=== PATIENT | female | born 1935 | race Two or more races ===

== ENCOUNTER 2023-04-25 12:18 | Inpatient (IN) | payer MEDICARE, MEDICAID ==
[~2023-04-25] VITALS: Ht 165.1 cm; Wt 54.4 kg
[2023-04-25 13:16] LABS: HEMATOCRIT. 32.5 % (36.0-48.0); HEMOGLOBIN. 10.3 g/dL (12.0-16.0); MEAN CORPUSCULAR HGB CONC 31.8 g/dL (31.0-37.0); MEAN CORPUSCULAR VOLUME 91.4 fL (81.0-99.0); PLATELET 211 x1000/uL (130-400); RED BLOOD CELL COUNT 3.56 mill/uL (4.2-5.4); RED CELL DISTRIBUTION WIDTH 15.4 % (11.6-14.6)
[2023-04-25 13:27] LABS: PROTHROMBIN TIME 10.9 sec (9.6-11.0)
[2023-04-25 13:37] LABS: DIFFERENTIAL COMMENT 1
[2023-04-25 13:48] LABS: ALANINE AMINOTRANSFERASE 33 IU/L (10-49); ALBUMIN 4.1 g/dL (3.2-4.8); ASPARTATE AMINOTRANSFERASE 52 IU/L (<34); BILIRUBIN TOTAL 0.6 mg/dL (0.1-1.0); CALCIUM 9.3 mg/dL (8.7-10.4); CARBON DIOXIDE 27 mEq/L (21-32); CHLORIDE 105 mEq/L (98-107); CREATININE 1.3 mg/dL (0.6-1.0); PROTEIN TOTAL 6.9 g/dL (6.0-8.3); SODIUM 138 mEq/L (136-145); UREA NITROGEN BLOOD 25 mg/dL (9-23)
[2023-04-25 13:51] LABS: PLATELET ESTIMATE NORMAL
[2023-04-25 14:09] LABS: GLUCOSE 43 mg/dL (70-105)
[2023-04-25] MEDS: CEFTRIAXONE 1GM PREMIX 50 ML IV NR (14:40)
[2023-04-25] MEDS: DEXTROSE 50% WATER 50ML SYRINGE IV NR (14:42)
[2023-04-25] MEDS: DEXT 10% WATER 1,000 ML IV SCH (15:08)
[2023-04-25] MEDS ORDERED: IPRATROPIUM/ALBUTEROL 0.5-3(2.5)MG/3ML NEB HHN PRN (15:30)
[2023-04-25] MEDS ORDERED: DOCUSATE SODIUM 100MG CAPSULE PO PRN (15:30)
[2023-04-25] MEDS ORDERED: GUAIFENESIN 200MG/10ML SUGAR FREE UDC PO PRN (15:30)
[2023-04-25] MEDS ORDERED: ATOR20TA65 PO (15:40)
[2023-04-25] MEDS ORDERED: DAPA5TAB PO (15:40)
[2023-04-25] MEDS ORDERED: HYDR-4135 PO (15:40)
[2023-04-25] MEDS ORDERED: BENA-8 PO (15:40)
[2023-04-25] MEDS ORDERED: ASPI-1406 PO (15:40)
[2023-04-25] MEDS ORDERED: HYDRALAZINE HCL 50MG TABLET PO SCH (17:00)
[2023-04-25] MEDS: BLOOD SUGAR DIAGNOSTIC STRIP TEST SCH ×2 (17:32→20:00)
[2023-04-25] MEDS ORDERED: CLONIDINE 0.1MG TABLET PO PRN (17:45)
[2023-04-25] MEDS: LISINOPRIL 20MG TABLET PO SCH (18:01)
[2023-04-25] MEDS ORDERED: ACETAMINOPHEN 325MG TABLET PO PRN (18:15)
[2023-04-25] MEDS: SODIUM CHLORIDE 0.45% 1,000 ML IV ONE (18:52)
[2023-04-25 20:00] VITALS: BP 131/67; PULSE 103; RESP 17; TEMP 101.3
[2023-04-25] MEDS: ATORVASTATIN CALCIUM 20MG TABLET PO SCH (20:02)
[2023-04-25 20:32] VITALS: BP 107/65; PULSE 101; RESP 18; TEMP 98.8
[2023-04-25] MEDS: INSULIN LISPRO 100 UNITS/ML SUBCUT SCH (21:00)
[2023-04-25] MEDS: DEXTROSE 50% WATER 50ML SYRINGE IV PRN (22:17)
[2023-04-26] VITALS: BP 104/53; PULSE 103; RESP 18; TEMP 100.9
[2023-04-26] MEDS ORDERED: DEXT 5%/0.45% NACL 500ML 500 ML IV NR (01:00)
[2023-04-26] MEDS: DEXT 5%/0.9% NACL 500 ML IV SCH (02:00)
[2023-04-26 04:00] VITALS: BP 134/62; PULSE 101; PULSE 102; RESP 18; TEMP 99.5
[2023-04-26 05:43] LABS: BASOPHILS % 0.7 % (0.0-2.0); EOSINOPHILS % 3.7 % (0.0-5.0); HEMATOCRIT. 30.3 % (36.0-48.0); HEMOGLOBIN. 9.7 g/dL (12.0-16.0); LYMPHOCYTES % 18.1 % (20.0-50.0); MEAN CORPUSCULAR HEMOGLOBIN 29.6 pg (28.0-32.0); MEAN CORPUSCULAR VOLUME 92.6 fL (81.0-99.0); MEAN PLATELET VOLUME 9.4 fl (7.4-10.4); MONOCYTES % 10.5 % (2.0-8.0); PLATELET 192 x1000/uL (130-400); RED BLOOD CELL COUNT 3.27 mill/uL (4.2-5.4); RED CELL DISTRIBUTION WIDTH 14.8 % (11.6-14.6); WHITE BLOOD COUNT 5.4 x1000/uL (4.5-11.0)
[2023-04-26 05:55] LABS: ALANINE AMINOTRANSFERASE 30 IU/L (10-49); ALBUMIN 3.4 g/dL (3.2-4.8); ASPARTATE AMINOTRANSFERASE 44 IU/L (<34); BILIRUBIN TOTAL 0.6 mg/dL (0.1-1.0); CARBON DIOXIDE 25 mEq/L (21-32); CHLORIDE 108 mEq/L (98-107); CHOLESTEROL 90 mg/dL (<200); CREATININE 1.3 mg/dL (0.6-1.0); HDL CHOLESTEROL 38 mg/dL (>65); IRON 30 ug/dL (50-170); LDL CHOLESTEROL 37 mg/dL (5-100); SODIUM 139 mEq/L (136-145); THYROID STIMULATING HORMONE 2.69 uIU/mL (0.55-4.78); TOTAL IRON BINDING CAPACITY 188 ug/dl (250-425); TRIGLYCERIDE 60 mg/dL (0-150); UREA NITROGEN BLOOD 21 mg/dL (9-23)
[2023-04-26 06:04] LABS: FERRITIN 98 ng/mL (10-291); FOLIC ACID (FOLATE) SERUM 17.88 ng/mL (>5.38); VITAMIN B12 SERUM 424 pg/mL (211-911)
[2023-04-26 06:23] LABS: GLUCOSE 48 mg/dL (70-105)
[2023-04-26 08:00] VITALS: BP 134/74; PULSE 94; RESP 20; TEMP 97.9
[2023-04-26] MEDS: ASPIRIN 81MG EC TABLET PO SCH (08:39)
[2023-04-26] MEDS: HYDRALAZINE HCL 50MG TABLET PO SCH (08:39)
[2023-04-26 12:13] VITALS: BP 148/78; PULSE 95; RESP 18; TEMP 98.2
[2023-04-26 16:00] VITALS: BP 123/68; PULSE 102; RESP 20; TEMP 98.7
[2023-04-26] MEDS: DEXT 5%/0.45% NACL 1000ML 1,000 ML IV SCH (17:46)
[2023-04-26 20:00] VITALS: BP 116/64; PULSE 109; RESP 20; TEMP 97.1
[2023-04-26] MEDS ORDERED: PHENYLEPHRINE 50MG/250ML PMX 250 ML IV PRN (22:00)
[2023-04-27] VITALS: BP 118/46; PULSE 104; RESP 19; TEMP 96.7
[2023-04-27 04:00] VITALS: BP 107/48; PULSE 90; RESP 20; TEMP 97.2
[2023-04-27] MEDS: LOPERAMIDE HCL 2MG CAPSULE PO NR (04:08)
[2023-04-27 07:03] LABS: BASOPHILS % 0.4 % (0.0-2.0); HEMATOCRIT. 30.1 % (36.0-48.0); HEMOGLOBIN. 9.6 g/dL (12.0-16.0); MEAN CORPUSCULAR HEMOGLOBIN 29.2 pg (28.0-32.0); MEAN CORPUSCULAR HGB CONC 31.8 g/dL (31.0-37.0); MEAN CORPUSCULAR VOLUME 91.8 fL (81.0-99.0); MEAN PLATELET VOLUME 9.4 fl (7.4-10.4); MONOCYTES % 12.9 % (2.0-8.0); NEUTROPHILS % 49.7 % (40.0-76.0); PLATELET 187 x1000/uL (130-400); RED BLOOD CELL COUNT 3.28 mill/uL (4.2-5.4); RED CELL DISTRIBUTION WIDTH 14.9 % (11.6-14.6); WHITE BLOOD COUNT 4.8 x1000/uL (4.5-11.0)
[2023-04-27 07:18] LABS: CLARITY URINE CLEAR (CLEAR); COLOR URINE YELLOW (YELLOW); GLUCOSE URINE 3+ (NEGATIVE); KETONES URINE NEGATIVE (NEGATIVE); LEUKOCYTE ESTERASE URINE NEGATIVE (NEGATIVE); NITRITE URINE NEGATIVE (NEGATIVE); OCCULT BLOOD URINE NEGATIVE (NEGATIVE); PH URINE 5.5 (4.5-8.0); PROTEIN URINE NEGATIVE (NEGATIVE); SPECIFIC GRAVITY URINE 1.008 (1.005-1.030); UROBILINOGEN URINE 0.2 E.U./dL (0.2-1.0)
[2023-04-27 07:18] LABS: CALCIUM 9.1 mg/dL (8.7-10.4); CARBON DIOXIDE 22 mEq/L (21-32); CHLORIDE 110 mEq/L (98-107); CREATININE 1.3 mg/dL (0.6-1.0); GLUCOSE 195 mg/dL (70-105); POTASSIUM 4.7 mEq/L (3.5-5.1); SODIUM 137 mEq/L (136-145); UREA NITROGEN BLOOD 17 mg/dL (9-23)
[2023-04-27 07:34] LABS: BACTERIA URINE NONE SEEN; RBC URINE 0-2 /hpf (0-2); SQUAMOUS EPITHELIAL CELL URINE NONE SEEN /lpf (RARE/1+); WBC URINE 0-2 /hpf (0-2)
[2023-04-27 08:00] VITALS: BP 136/71; PULSE 83; RESP 20; TEMP 98.7
[2023-04-27] MEDS: MAGNESIUM 2 G PREMIX 50 ML IV NR (09:04)
[2023-04-27 12:00] VITALS: BP 116/60; PULSE 85; RESP 20; TEMP 98.6
[2023-04-27 16:00] VITALS: BP 123/60; PULSE 94; RESP 20; TEMP 98.5
[2023-04-27 20:00] VITALS: BP 117/49; PULSE 99; RESP 20; TEMP 97.2
[2023-04-28] VITALS: BP 113/62; PULSE 89; RESP 19; TEMP 97.4
[2023-04-28 04:00] VITALS: BP 153/89; PULSE 88; RESP 18; TEMP 96.5
[2023-04-28 07:15] LABS: CALCIUM 9.3 mg/dL (8.7-10.4); CREATININE 1.2 mg/dL (0.6-1.0); POTASSIUM 4.5 mEq/L (3.5-5.1)
[2023-04-28 07:16] LABS: HEMATOCRIT. 28.4 % (36.0-48.0); HEMOGLOBIN. 9.1 g/dL (12.0-16.0); MEAN CORPUSCULAR HEMOGLOBIN 28.9 pg (28.0-32.0); MEAN CORPUSCULAR VOLUME 90.4 fL (81.0-99.0); MEAN PLATELET VOLUME 9.3 fl (7.4-10.4); PLATELET 207 x1000/uL (130-400); RED BLOOD CELL COUNT 3.14 mill/uL (4.2-5.4); RED CELL DISTRIBUTION WIDTH 15.2 % (11.6-14.6); WHITE BLOOD COUNT 5.4 x1000/uL (4.5-11.0)
[2023-04-28 07:24] LABS: DIFFERENTIAL COMMENT 1
[2023-04-28 11:52] VITALS: BP 133/70; PULSE 77; TEMP 96.9; O2SAT 100
[2023-04-28 12:00] VITALS: BP 143/69; PULSE 78; RESP 18; TEMP 97.1
[2023-04-28 12:02] LABS: NUCLEATED RED BLOOD CELLS 1 /100 WBC; PLATELET ESTIMATE NORMAL
[2023-04-28 12:03] LABS: ANISOCYTOSIS 1+
== END 2023-04-28 16:15 | disposition home or self-care (01) | DRG 637 ==
LOC: ER 12:18 → 7WST 14:31 → EDBEDREQ 14:35 → EDBEDREQSVC 14:35 → EDBEDREQTM 14:35 → EDBEDREQ 14:36
PROVIDERS: ADMIT Internal Medicine; ATTEND Internal Medicine
DX: E11.649 Type 2 diabetes mellitus with hypoglycemia without coma (principal); G92.8 Other toxic encephalopathy; N17.9 Acute kidney failure, unspecified; I10 Essential (primary) hypertension; D72.825 Bandemia; D64.9 Anemia, unspecified; R74.8 Abnormal levels of other serum enzymes; T38.3X5A Adverse effect of insulin and oral hypoglycemic [antidiabetic] drugs, initial encounter; E83.42 Hypomagnesemia; Z79.4 Long term (current) use of insulin; Z79.82 Long term (current) use of aspirin; Z79.84 Long term (current) use of oral hypoglycemic drugs; Z79.899 Other long term (current) drug therapy; Y92.89 Other specified places as the place of occurrence of the external cause
CPT/HCPCS: 36415; 76770; 80048; 80053; 80061; 81003; 82607; 82728; 82746; 82962; 83036; 83540; 83550; 83735; 84439; 84443; 85025; 87015; 87045; 87177; 87209; 87427; 87449; 89055; 93005; 93306; 97162; 97166; 99291; J0696; J1815; J3475; J7042